=== PATIENT | female | born 1950 | race Caucasian/White ===

== ENCOUNTER → 2016-12-25 | Outpatient (CLI) | payer BC, OTHER ==
[~2016-12-25] MED LIST: ADVAIR 250/501 DISK IH; ASPIRIN81 M1 PO; CALCIUM 1,2001 EACH PO; DUONEB 2.5-0.5 M3 ML IH; FUROSEMIDE20 MG PO; GLUCOPHAGE500 MG PO; JANUVIA100 MG PO; LANTUS 10100 UNITS/ SC; LEVOTHROID25 MCG PO; LIPITOR20 MG PO; POTASSIUM CHLO10 ME3 PO; PROAIR HFA8.5 GM IH
== END | disposition home or self-care (01) ==
DX: R13.11 Dysphagia, oral phase (principal); R13.13 Dysphagia, pharyngeal phase
CPT/HCPCS: 92611 GN; G8996 GN; G8997 GN; G8998 GN